=== PATIENT | male | born 1970 | race Two or more races ===

== ENCOUNTER 2021-10-17 10:53 | Outpatient (REF) | payer OTHER, SELFPAY ==
--- NOTE | ~2021-10-17 | US_ITS ---
EXAMINATION: US RETROPERITONEAL LIMITED (RENAL ONLY) CLINICAL INFORMATION: Calculus of kidney. COMPARISON: None TECHNIQUE: Real-time imaging of the kidneys. FINDINGS: RIGHT KIDNEY: 11.0 x 6.0 x 5.7 cm (SAG x AP x TRV). The kidney is normal in size, contour, and echogenicity. Renal cortical thickness is normal. No calculi or focal parenchymal lesions. No hydronephrosis. LEFT KIDNEY: 11.1 x 7.0 x 4.8 cm (SAG x AP x TRV). The kidney is normal in size, contour, and echogenicity. Renal cortical thickness is normal. There is a 5 mm stone in the lower pole. No focal parenchymal lesions or hydronephrosis. US/US renal BI IMPRESSION: Left renal stone.
== END 2021-10-17 10:54 | disposition home or self-care (01) ==
LOC: HO.US 10:53
PROVIDERS: Visit Provider Internal Medicine
DX: N20.0 Calculus of kidney (principal)
CPT/HCPCS: 76775

== ENCOUNTER → 2021-11-07 08:51 | Outpatient (BNVA) | payer OTHER, SELFPAY | PROVIDERS: PCP Internal Medicine | DX: N20.0 Calculus of kidney (principal) | CPT/HCPCS: 99202 ==

== ENCOUNTER → 2021-12-01 12:33 | Outpatient (BNVA) | payer OTHER, SELFPAY | PROVIDERS: PCP Internal Medicine; Visit Provider Nurse Practitioner | DX: Z12.11 Encounter for screening for malignant neoplasm of colon (principal) | CPT/HCPCS: 99202 ==

== ENCOUNTER 2022-01-16 14:29 | Outpatient (REF) | payer OTHER, SELFPAY ==
[2022-01-20 23:31] LABS: Stone Source KIDNEY STONE
== END 2022-01-16 14:30 | disposition home or self-care (01) ==
LOC: HO.LAB 14:29
DX: N20.0 Calculus of kidney (principal)
CPT/HCPCS: 82365; 88300; 88307

== ENCOUNTER 2022-01-19 09:13 | Outpatient (REF) | payer OTHER, SELFPAY ==
[2022-01-19 09:30] LABS: MANUAL DIFF FLAG NO
[2022-01-19 09:38] LABS: Basophils Percent Auto 0.3 % (0-2); Eosinophils Absolute Auto 0.1 X10*3/uL (0.0-0.4); Eosinophils Percent Auto 1.7 % (0-4); Hematocrit 41.3 % (42.0-52.0); Hemoglobin 14.1 g/dl (14.0-18.0); Imm Gran Abs Auto 0.02 X10*3/uL (0.00-0.03); Imm Gran Pct Auto 0.3 % (0.0-0.4); Lymphocytes Absolute Auto 1.8 X10*3/uL (1.2-4.9); Lymphocytes Percent Auto 26.4 % (20-40); Mean Corpuscular HGB Conc 34.1 g/dl (31.0-36.0); Mean Corpuscular Hemoglobin 29.3 pg (27.0-33.0); Mean Corpuscular Volume 85.9 fL (80.0-98.0); Mean Platelet Volume 9.2 fL (9.4-12.4); Monocytes Absolute Auto 0.6 X10*3/uL (0.1-1.2); Monocytes Percent Auto 9.7 % (2-11); Neutrophils Absolute Auto 4.1 x10*3/uL (2.0-8.3); Neutrophils Percent Auto 61.6 % (45-73); Platelet Count 230 X10*3/uL (160-400); Red Blood Count 4.81 X10*6/uL (4.60-5.80); Red Cell Distribution Width 12.7 % (11.0-16.0); White Blood Count 6.6 X10*3/uL (4.8-10.8)
[2022-01-19 10:13] LABS: Alanine Aminotransferase 23 U/L (0-40); Albumin Level 4.1 g/dL (3.5-5.0); Alkaline Phosphatase 73 U/L (39-117); Anion Gap 11 (12-20); Aspartate Amino Transferase 16 U/L (5-37); Bilirubin Total 0.7 mg/dL (0.0-1.0); Blood Urea Nitrogen 13 mg/dL (9-16); Calcium 9.8 mg/dL (8.4-10.2); Carbon Dioxide 27 mmol/L (22-29); Chloride 106 mmol/L (96-108); Estimated Glomerular Filt Rate > 60; Glucose Random 114 mg/dL (60-115); Potassium 4.2 mmol/L (3.3-5.1); Sodium 140 mmol/L (135-145); Total Protein 7.2 g/dL (6.5-8.0)
== END 2022-01-19 09:14 | disposition home or self-care (01) ==
LOC: HO.LAB 09:13
PROVIDERS: Absent Provider Internal Medicine; PCP Internal Medicine; Visit Provider Nurse Practitioner
DX: K21.9 Gastro-esophageal reflux disease without esophagitis (principal)
CPT/HCPCS: 36415; 80053; 85025

== ENCOUNTER 2022-04-16 08:58 | Outpatient (REF) | payer OTHER, SELFPAY ==
--- NOTE | ~2022-04-16 | US_ITS ---
EXAMINATION: US RETROPERITONEAL LIMITED (RENAL ONLY) CLINICAL INFORMATION: Calculus of kidney. COMPARISON: US retroperitoneal limited (renal only) 10/17/2021. TECHNIQUE: Real-time imaging of the kidneys. FINDINGS: RIGHT KIDNEY: 10.6 x 5.4 x 5.8 cm (SAG x AP x TRV). The kidney is normal in size, contour, and echogenicity. Renal cortical thickness is normal. No calculi or focal parenchymal lesions. No hydronephrosis. LEFT KIDNEY: 11.9 x 5.6 x 4.3 cm (SAG x AP x TRV). The kidney is normal in size, contour, and echogenicity. Renal cortical thickness is normal. There is a 5 mm stone in the lower pole. No focal parenchymal lesions or hydronephrosis. US/US renal BI IMPRESSION: Left renal stone.
== END 2022-04-16 08:59 | disposition home or self-care (01) ==
LOC: HO.US 08:58
DX: N20.0 Calculus of kidney (principal)
CPT/HCPCS: 76775

== ENCOUNTER 2022-07-17 07:29 | Day surgery (SDC) | payer OTHER, SELFPAY ==
[2022-07-11 09:29] VITALS: BMI 29.2
--- NOTE | 2022-07-16 11:49 | HO.ANESPROP2 ---
Documented by User: Sheri Ovalle NP 07/16/22 11:52 HPI - Anesthesia Eval Consult details Narrative: 52yo M for Colonoscopy PMFSH Active Problems Active Problems: All Active Problems (Updated 01/22/22 @ 10:33 by Lauren Chapa MD) Physical exam (Acute) Colon cancer screening (Acute) Umbilical hernia (Acute) Ventral hernia (Acute) History of pancreatitis (Acute) History of alcohol abuse (Acute) Renal calculi (Acute) Screen for colon cancer (Acute) Family history of hypertension (Acute) Hemorrhoids (Acute) Nephrolithiasis (Acute) Chronic GERD (Acute) KINDRA (generalized anxiety disorder) (Acute) Mild recurrent major depression (Acute) Past Medical History Medical History Chronic GERD Family history of hypertension KINDRA (generalized anxiety disorder) Hemorrhoids History of pancreatitis Mild recurrent major depression Nephrolithiasis Physical exam Renal calculi Screen for colon cancer Family History Family History Father No problems noted. Mother Hypertension Surgical History Surgical History No pertinent past surgical history Social History Social History Housing: Apartment Alcohol intake: former Patient Tobacco Use Status: Former Tobacco user Tobacco use type: Cigarette e-Cigarette/Vaping Use: Never Used Second Hand Smoke Exposure: No Are you DNR?: No Advance Directives: No Advance Directives Information Provided: Yes Nutrition Risks: No Nutritional Risk service: No Current occupational status: employed Current occupational exposures/hazards: No Cognitive needs: No Hearing needs: No Vision needs: No Meds Allergies Allergy/AdvReac Type Severity Reaction Status Date / Time No Known Allergies Allergy Verified 07/17/22 08:11 Exam Exam Date and Time: July 16, 2022 1149 Height,Weight and Vital Signs: Height 5 ft 6 in Weight 82.1 kg Pertinent Lab Results Pertinent Lab Results: Laboratory Tests 01/19/22 01/19/22 09:30 09:30 WBC 6.6 Hgb 14.1 Hct 41.3 L Plt Count 230 Sodium 140 Potassium 4.2 Chloride 106 Carbon Dioxide 27 BUN 13 Creatinine 0.99 Assessment and Plan Assessment Anesthesia Assessment: Chart Reviewed Documented by User: Evelia Bryan MD 07/17/22 08:34 PMFSH Past Medical History Medical History Chronic GERD Family history of hypertension KINDRA (generalized anxiety disorder) Hemorrhoids History of pancreatitis Mild recurrent major depression Nephrolithiasis Physical exam Renal calculi Screen for colon cancer Family History Family History Father No problems noted. Mother Hypertension Surgical History Surgical History No pertinent past surgical history History of Problems with Anesthesia: No Social History Social History Housing: Apartment Alcohol intake: former Patient Tobacco Use Status: Former Tobacco user Tobacco use type: Cigarette e-Cigarette/Vaping Use: Never Used Second Hand Smoke Exposure: No Are you DNR?: No Advance Directives: No Advance Directives Information Provided: Yes Nutrition Risks: No Nutritional Risk service: No Current occupational status: employed Current occupational exposures/hazards: No Cognitive needs: No Hearing needs: No Vision needs: No Meds Allergies Allergy/AdvReac Type Severity Reaction Status Date / Time No Known Allergies Allergy Verified 07/17/22 08:11 Assessment and Plan Assessment Anesthesia Assessment: Anesthesia Plan Discussed Final Anesthetic Review History of Problems with Anesthesia: No NPO: Yes ASA Class: II Final Preanesthetic Review: Meds/Allgs Chart Reviewed, Consent Obtained/Reviewed and Anes Risks/Benef Reviewed Patient Risk: Low Procedure Risk: Low Anesthetic Plan Anesthetic Plan: MAC: Disposition: Standard PACU
[2022-07-17 08:09] VITALS: BP 146/88; PULSE 94; RESP 18; TEMP 36.7; O2SAT 100
[2022-07-17] MEDS: Lactated Ringers 1,000 ML 100 ML IVCONT (08:15)
--- NOTE | 2022-07-17 08:37 | MHC.SHP ---
Pre-Procedural Eval Section A Date of Service: 07/17/22 Section B Chief Complaint: screening Relevant Family History (Specify if Yes): No Relevant Social History: None Present Medications: see Short Stay Collaborative assessment Medical History: Significant History (Chronic GERD Family history of hypertension KINDRA (generalized anxiety disorder) Hemorrhoids History of pancreatitis Mild recurrent major depression Nephrolithiasis Physical exam Renal calculi Screen for colon cancer) History of Previous Operations: No relevant previous surgery Allergies: Allergies Allergy/AdvReac Type Severity Reaction Status Date / Time No Known Allergies Allergy Verified 07/17/22 08:11 Review of Systems Sugical H&P ROS: Negative: Constitution, Cardiovascular, Respiratory, Neurological, Psychiatric, Hem-Onc, Allergic/Immunologic, Gastrointestinal, Genitourinary, Musculoskeletal, Integumentary, Endocrine and Eyes/Ears/Nose/Throat Exam Surgical H&P Exam: Normal: HEENT, Normal: Heart, Normal: Lungs, Normal: Extremities, Normal: Abdomen, Normal: Skin and Normal: Neurological Plan Diagnosis/Plan: Unchanged I have reviewed the history and physical and performed a pertinent physical examination on my patient. No changes have occurred unless specified.
--- NOTE | 2022-07-17 08:42 | PC.NURSE ---
Anti aware that patient stated that he ate green jello and drank apple juice at 0300. Okay to proceed.
--- NOTE | 2022-07-17 09:21 | W.PM.OPN ---
Operative Note Operative Note Date of Service: 07/17/22 Narrative: Operative Information Procedure Description: Colonoscopy Indication: screening Anesthesia: MAC COLONOSCOPY Instrument: Olympus variable stiffness pediatric scope 190L Colonoscopy Monitoring: Vital signs and clinical assessment, continuous EKG monitoring, Pulse oximetry, Carbon Dioxide monitoring and blood pressure monitoring were done throughout the procedure. Colon withdrawal time was 6 minutes. Procedure: The patient was placed in the left lateral decubitis position and pre-procedure medications were administered. After a digital rectal examination of the ano-rectum, the video colonoscope was inserted into the rectum and advanced through the colon to the cecum/TI. The colonoscope was slowly withdrawn in a retrograde panoramic fashion and the colon mucosa was carefully examined including a retroflexed view of the rectum. Findings and interventions are described below. Procedure Difficulty: easy Findings: Terminal Ileum-normal Cecum:normal Ascending Colon: normal Transverse Colon -normal Descending Colon:normal Sigmoid Colon: normal Rectum: Retroflexion with small internal hemorrhoids, grade I Anorectum - normal Colon preparation: [place] Bowel Preparation Scale Right colon; 3 Transverse colon: 3 Left colon; 3 (0 = Unprepared colon segment with mucosa not seen due to solid stool that cannot be cleared. 1 = Portion of mucosa of the colon segment seen, but other areas of the colon segment not well seen due to staining, residual stool and/or opaque liquid. 2 = Minor amount of residual staining, small fragments of stool and/or opaque liquid, but mucosa of colon segment seen well. 3 = Entire mucosa of colon segment seen well with no residual staining, small fragments of stool or opaque liquid) Impression and Post Procedure Diagnosis: internal hemorrhoids Plan: High fiber diet leaflet Avoid straining at stool, epsom salts and sitz bath, anusol supps or cream Repeat Colonoscopy in 10 years or earlier if clinically indicated Above findings were reviewed with the patient and relevant handouts were provided if indicated.
[2022-07-17 09:24] VITALS: BP 111/61; PULSE 86; RESP 16; TEMP 36.7; O2SAT 94
[2022-07-17 09:39] VITALS: BP 111/89; PULSE 81; RESP 16; TEMP 37; O2SAT 97
== END 2022-07-17 10:03 | disposition home or self-care (01) ==
PROVIDERS: PCP Internal Medicine; Visit Provider Internal Medicine Gastroenterology
PROC: 0DJD8ZZ Inspection of Lower Intestinal Tract, Via Natural or Artificial Opening Endoscopic (ICD-10-PCS; CPT 45378; principal; 2022-07-17 08:50)
DX: Z12.11 Encounter for screening for malignant neoplasm of colon (principal); K64.0 First degree hemorrhoids; K21.9 Gastro-esophageal reflux disease without esophagitis; Z87.19 Personal history of other diseases of the digestive system; N20.0 Calculus of kidney; F33.0 Major depressive disorder, recurrent, mild; F41.1 Generalized anxiety disorder; Z87.891 Personal history of nicotine dependence; Z79.899 Other long term (current) drug therapy
CPT/HCPCS: 45378

== ENCOUNTER → 2022-07-31 09:44 | Outpatient (BNVA) | payer OTHER, SELFPAY | PROVIDERS: PCP Internal Medicine; Visit Provider Nurse Practitioner | DX: K21.9 Gastro-esophageal reflux disease without esophagitis (principal) | CPT/HCPCS: 99212 ==

== ENCOUNTER 2023-05-23 09:49 | Outpatient (REF) | payer OTHER, SELFPAY ==
--- NOTE | ~2023-05-23 | US_ITS ---
EXAMINATION: US RETROPERITONEAL LIMITED (RENAL ONLY) CLINICAL INFORMATION: Calculus of kidney. COMPARISON: Ultrasound retroperitoneal limited (renal only) 04/16/2022 and 10/17/2021. TECHNIQUE: Real-time imaging of the kidneys. FINDINGS: RIGHT KIDNEY: 10.3 x 6.4 x 5.7 cm (SAG x AP x TRV). The kidney is normal in size, contour, and echogenicity. Renal cortical thickness is normal. No calculi or focal parenchymal lesions. No hydronephrosis. There are numerous echogenic foci which do not meet formal ultrasound criteria for calculi. LEFT KIDNEY: 10.5 x 6.3 x 5.9 cm (SAG x AP x TRV). The kidney is normal in size, contour, and echogenicity. Renal cortical thickness is normal. No focal parenchymal lesions or hydronephrosis. At the lower pole, 6 mm and 3 mm nonobstructing calculi are seen, with twinkle artifact. US/US renal BI IMPRESSION: There are nonobstructing left renal calculi. No right renal calculus is seen. No hydronephrosis is noted bilaterally.
== END 2023-05-23 09:50 | disposition home or self-care (01) ==
LOC: HO.US 09:49
PROVIDERS: PCP Internal Medicine; Visit Provider Urology
DX: N20.0 Calculus of kidney (principal)
CPT/HCPCS: 76775

== ENCOUNTER 2023-06-20 10:20 | Outpatient (AMB) | payer OTHER, SELFPAY ==
--- NOTE | 2023-06-20 10:21 | A.OFFVIS_ITS ---
Intake Intake Visit Reasons: 1Y US(05/03) Intake Note: Patient presents today for a follow-up on Renal Calculi, US Results, completed on 05/23/2023: Meds- None Allergies to Antibiotic- No Known Allergies Blood Thinner- None Vehicle Maintenance Supervisor Required: Yes Vehicle Maintenance Supervisor Language: Peruvian Accompanied by: Self / Same As Patient Allergies No Known Allergies Allergy (Verified 06/20/23 10:22) HPI 1Y US(05/03) HPI Katia العراقي is a 53-year-old male who presents today via tele-visit for a follow-up review of US result. 06/20/23? The patient has been followed by Dr. Jin for nephrolithiasis. The patient denies any urinary symptoms since last visit. He has not been prescribed Vit B6. He denies any family history of prostate cancer. 05/23/23: US RETROPERITONEAL LIMITED (RE NAL ONLY) result reviewed: There are 3mm and 6 mm non-obstructing left renal calculi. No right renal calculus is seen. No hydronephrosis is noted bilaterally. Plan We will continue to monitor at this time. Vitamin B6 100 mg was ordered. 24-hour urine collection test was ordere d. The patient will follow up in three months to review 24-hour urine collection test result. [facility] Medical History Physical exam Renal calculi Screen for colon cancer Family history of hypertension History of pancreatitis Hemorrhoids Nephrolithiasis Chronic GERD KINDRA (generalized anxiety disorder) Mild recurrent major depression Surgical History H/O colonoscopy Family History Father No problems noted. Mother Hypertension Social History Housing: Apartment Alcohol intake: former Patient Tobacco Use Status: Former Tobacco user Tobacco use type: Cigarette e-Cigarette/Vaping Use: Never Used Second Hand Smoke Exposure: No service: No Current occupational status: employed Current occupational exposures/hazards: No Cognitive needs: No Hearing needs: No Vision needs: No Review of Systems Const All systems reviewed & are unremarkable except as noted in HPI and below Reports no additional complaints Eyes Reports no additional complaints ENT Reports no additional complaints Card Reports no additional complaints Resp Reports no additional complaints GI Reports no additional complaints Musc Reports no additional complaints Skin/Breast Reports system reviewed and no additional complaints, except as documented Neuro Reports no additional complaints Psych Reports no additional complaints Endo Reports no additional complaints Angel/Lymph Reports no additional complaints Aller/Immun Reports no additional complaints Results Reviewed Results Reviewed: 05/23/23: US RETROPERITONEAL LIMITED (RENAL ONLY): FINDINGS: RIGHT KIDNEY: 10.3 x 6.4 x 5.7 cm (SAG x AP x TRV). The kidney is normal in size, contour, and echogenicity. Renal cortical thickness is normal. No calculi or focal parenchymal lesions. No hydronephrosis. There are numerous echogenic foci which do not meet formal ultrasound criteria for calculi. LEFT KIDNEY: 10.5 x 6.3 x 5.9 cm (SAG x AP x TRV). The kidney is normal in size, contour, and echogenicity. Renal cortical thickness is normal. No focal parenchymal lesions or hydronephrosis. At the lower pole, 6 mm and 3 mm nonobstructing calculi are seen, with twinkle artifact. IMPRESSION: There are nonobstructing left renal calculi. No right renal calculus is seen. No hydronephrosis is noted bilaterally. Assessment & Plan Assessment & Plan (1) Renal calculi: Code(s): N20.0 - Calculus of kidney Plan We will continue to monitor at this time. Vitamin B6 100 mg was ordered. 24-hour urine collection test was ordered. The patient will follow up in three months to review 24-hour urine collection test result. Medications: New pyridoxine (vitamin B6) 100 mg PO DAILY 90 tabs 3RF Patient Instructions: The patient had an opportunity to ask questions regarding treatment plan. All questions were answered. Imaging, Laboratory studies and physical exam results were discussed and reviewed in detail. No major barriers to understanding were identified. The patient expressed understanding and agreement with the above treatment plan. The patient is aware they should contact our office by phone for worsening of their current condition or the appearance of new symptoms. Compliance is encouraged with any medications and followup testing that is ordered. It is a privilege to be allowed the opportunity to participate in the urologic care of your patient. If you have any questions or concerns regarding treatment for the above conditions please do not hesitate to contact me. The office telephone contact is [phone]. This note is constructed in part using voice recognition software. While every effort has been made to ensure accuracy car pick up driver errors may have been included. Yours sincerely, Karen Carpio MD Telehealth Telehealth Location of provider rendering services: practice address Location of patient: address on file Patient Identification confirmed using: Name, : Yes Telehealth method: voice only Patient verbally consented to treatment: Yes Patient verbally consented to billing insurance company: Yes Patient informed of any privacy concerns related to visit: Yes Minutes spent on Phone/Video with Pt.: 15 Coding Level of Care Code Tele Est Pt Level 3 (37493) Diagnoses Renal calculi N20.0
== END 2023-06-20 16:30 ==
LOC: HO.HUSH 10:20
PROVIDERS: PCP Internal Medicine; Visit Provider Urology
DX: N20.0 Calculus of kidney (principal)
CPT/HCPCS: 99213

== ENCOUNTER → 2023-06-20 10:20 | Outpatient (BNVA) | payer OTHER, SELFPAY | PROVIDERS: PCP Internal Medicine; Visit Provider Urology ==

== ENCOUNTER 2023-07-10 13:01 | Outpatient (REF) | payer OTHER, SELFPAY ==
[2023-07-10 14:50] LABS: Influenza A PCR NEGATIVE (Negative); Influenza B PCR NEGATIVE (Negative); Resp Syncy Virus RNA Qual PCR NEGATIVE (Negative); SARS COV2 PCR INHOUSE NEGATIVE (Negative)
== END 2023-07-10 13:02 | disposition home or self-care (01) ==
LOC: HO.LAB 13:01
PROVIDERS: PCP Internal Medicine; Visit Provider Internal Medicine
DX: R09.89 Other specified symptoms and signs involving the circulatory and respiratory systems (principal); Z11.52 Encounter for screening for COVID-19
CPT/HCPCS: 0241U

== ENCOUNTER 2023-07-10 16:46 | Outpatient (AMB) | payer OTHER, SELFPAY ==
[2023-07-10 16:49] VITALS: BP 146/110; PULSE 130; O2SAT 96; BMI 29.9
--- NOTE | 2023-07-10 16:49 | A.OFFPC_ITS ---
Vital Signs 07/10/23 16:49 07/11/23 07:35 Height 5 ft 6 in Weight 185 lb BMI 29.9 BP 146/110 H 140/100 H Blood Pressure Location Lt brachial Lt brachial Position Sitting Sitting Pulse 130 H Pulse Source Pulse Oximeter Pulse Oximetry (%) 96 Oxygen Delivery Method Room Air Intake Visit Reasons: Annual PE Intake Note: Patient here for a physical exam Chief Science Officer Required: No Accompanied by: Self / Same As Patient Allergies No Known Allergies Allergy (Verified 07/10/23 17:10) Medication List - Last Reconciled 07/10/23 by Lauren Chapa MD omeprazole 20 mg PO DAILY 90 days pyridoxine (vitamin B6) 100 mg PO DAILY Tobacco use date assessed: 07/10/23 Dental Screening Dental Screen Date: 07/10/23 Did you have a dental visit in the last 12 months?: No Did you have a dental problem in the last 6 months where you did not have access to dental care?: No Was dental information given to patient?: Patient has dentist HPI HPI Comments History of Present Illness Details This is a 53-year-old male that comes for his physical exam. Blood pressure is elevated today and will be recheck in 3 weeks by nurse navigator. Denies any chest pain or shortness of breath. Colonoscopy done July 2022 was normal. [facility] Medical History Physical exam Renal calculi Screen for colon cancer Family history of hypertension History of pancreatitis Hemorrhoids Nephrolithiasis Chronic GERD KINDRA (generalized anxiety disorder) Mild recurrent major depression Surgical History H/O colonoscopy Family History Father No problems noted. Mother Hypertension Social History Housing: Apartment Alcohol intake: former Patient Tobacco Use Status: Former Tobacco user Tobacco use type: Cigarette e-Cigarette/Vaping Use: Never Used Second Hand Smoke Exposure: No service: No Current occupational status: employed Current occupational exposures/hazards: No Cognitive needs: No Hearing needs: No Vision needs: No Questionnaire PHQ-9 Over the last 2 weeks, how often have you been bothered by any of the following problems? 1. Little interest or pleasure in doing things: not at all 2. Feeling down, depressed, or hopeless: not at all 3. Trouble falling or staying asleep, or sleeping too much: not at all 4. Feeling tired or having little energy: not at all 5. Poor appetite or overeating: not at all 6. Feeling bad about yourself - or that you are a failure or have let yourself or your family down: not at all 7. Trouble concentrating on things, such as reading the newspaper or watching television: not at all 8. Moving or speaking so slowly that other people could have noticed. Or the opposite - being so fidgety or restless that you have been moving around a lot more than usual: not at all 9. Thoughts that you would be better off or of hurting yourself in some way: not at all Total score: 0 Depression Screening Interpretation: Negative Depression Screening Done: Yes 26523 - PHQ-9 Billing: Yes Source: Developed by Drs. Vel Gill, Allison Moran, Jonatan Omalley and colleagues, with an educational laure from [employer]. Thrive Questionnaire Date Thrive assessed: 07/10/23 I am a: Patient What is your living situation today?: I have a steady place to live Within the past 12 months, did the food you bought not last and you didn't have the money to get more?: Never true Within the past 12 months, did you worry whether your food would run out before you got money to buy more?: Never true Do you have trouble paying for medicines?: No Do you have trouble getting transportation to medical appointments?: No Do you have trouble paying your heating and electricity bill?: No Do you have trouble taking care of your child, family member or friend?: No Do you have trouble with day-to-day activities such as bathing, preparing meals, shopping, managing finances, etc.?: No Are you currently unemployed and looking for a job?: No Are you interested in more education?: No Please select the resources that you would like help with: None Currently or been in a relationship where the following occur: no concerns rep orted AUDIT C Alcohol Use Questionnaire (AUDIT-C) 1. How often do you have a drink containing alcohol?: Never Total Score: 0 KINDRA-7 AMB Questionnaire KINDRA-7 Date KINDRA - 7 assessed: 07/10/23 Feeling nervous, anxious, or on edge: 1 = Several days Not being able to stop or control worryin = Not at all Worrying too much about different things: 0 = Not at all Trouble relaxin = Not at all Being so restless that it is hard to sit still: 0 = Not at all Becoming easily annoyed or irritable: 0 = Not at all Feeling afraid as if something awful might happen: 0 = Not at all Total KINDRA-7 score (0-4 normal; 5-9 mild; 10-14 moderate; 15-21 severe): 1 Source: Developed by Drs. Vel Gill, Allison Moran, Jonatan Omalley and colleagues, with an educational laure from [employer]. KINDRA-7 Assessment Billing KINDRA-7 Assessment Tool: KINDRA-7 Assessment 08840 Review of Systems Const All systems reviewed & are unremarkable except as noted in HPI and below Eyes Reports no additional complaints, Denies change in vision and Denies other visual disturbances Card Denies chest pain at rest, Denies chest pain with activity, Denies edema, Denies irregular heart rhythm, Denies claudication, Denies dyspnea, Denies dyspnea on exertion, Denies orthopnea, Denies paroxysmal nocturnal dyspnea and Denies slow heart rate Resp Denies cough, Denies dyspnea and Denies dyspnea on exertion GI Denies abdominal pain, Denies change in bowel habits, Denies excessive flatus, Denies nausea and Denies vomiting Denies urinary hesitancy, Denies urinary incontinence and Denies urinary urgency Musc Denies abnormal gait, Denies atrophy, Denies deformity and Denies limited range of motion Skin/Breast Denies bleeding lesions, Denies changing lesions and Denies rash Neuro Denies abnormal gait and Denies lack of coordination Physical exam (Primary Care) Vital Signs: Last Vital Signs Pulse 130 H 07/10/23 16:49 BP 146/110 H 07/10/23 16:49 Pulse Ox 96 07/10/23 16:49 Oxygen Delivery Method Room Air 07/10/23 16:49 BMI result Body Mass Index 29.9 Tobacco/Smoking Status: Tobacco use Status Tobacco use date assessed 07/10/23 07/10/23 16:53 Patient Tobacco Use Status Former Tobacco user 07/10/23 16:53 Tobacco use type Cigarette 07/10/23 16:53 e-Cigarette/Vaping Use Never Used 07/10/23 16:53 PHQ-9: PHQ-9 Score PHQ-9: Total score 0 07/10/23 17:15 Depression Screening Interpretation: Negative Thrive Assessment: Date of Thrive Assessment Date Thrive assessed 07/10/23 07/10/23 16:53 Currently or been in a relationship where the following occur: no concerns reported Const Orientation/consciousness: patient oriented x3 HENMT Head: Yes normal to inspection, Yes normocephalic and Yes atraumatic Ears: external ears normal Eyes General: appearance normal, both eyes and all related structures Eyelids: Yes eyelids normal Conjunctivae: conjunctivae normal Neck Neck: Yes normal visual inspection and Yes supple Resp Effort & Inspection: normal respiratory effort Auscultation: clear to auscultation bilaterally Cardio Jugular venous distension: no JVD Rate: regular rate Rhythm: regular rhythm Heart sounds: S1 normal heart sound present and S2 normal heart sound present GI Inspection: Yes normal to inspection Palpation (GI): Soft to palpation and nontender Auscultation: normal bowel sounds Skin General skin exam: no rashes or lesions noted Neuro General: patient oriented x3 and no focal motor deficits Extrem General: Yes full ROM Psych Appearance: grossly normal Office Procedures Flu Questionnaire Does the patient have a severe egg allergy?: No Immunizations flu vacc [id number] 6mos up(PF) 60 mcg(15 mcgx4)/0.5 mL IM syringe Performing Provider: Lauren Chapa MD [facility] [place] Documented (not given) by: TIMI Edouard on 07/10/23 17:10 Reason Not Given: Patient Refused Assessment and Plan Assessment & Plan (1) Physical exam: Code(s): Z00.00 - Encounter for general adult medical examination without abnormal findings Plan: Repeat in a year Orders: Orders SARS-CoV2/FLU/RSV 07/10/23 R09.89 - Other specified symptoms and signs involving the circulatory and respiratory systems Influenza [id number] Immunization 07/10/23 Z23 - Encounter for immunization Comprehensive Welcome. Panel Fast 07/10/23 Z00.00 - Encounter for general adult medical examination without abnormal findings Lipid Panel 07/10/23 Z00.00 - Encounter for general adult medical examination without abnormal findings Medications: New amoxicillin 500 mg PO BID 14 tabs 0RF 7 days Coding Level of Care Code Est Pt Prev Care 40-64y(36013) Diagnoses Physical exam Z00.00 Additional Codes KINDRA-7 Assessment Billing - KINDRA-7 Assessment Tool: KINDRA-7 Assessment 37022 ([id number]) Time Spent (min) 31
[2023-07-11 07:35] VITALS: BP 140/100
== END 2023-07-10 17:19 | disposition home or self-care (01) ==
PROVIDERS: Visit Provider Internal Medicine
DX: Z00.00 Encounter for general adult medical examination without abnormal findings (principal)
CPT/HCPCS: 99396

== ENCOUNTER 2024-01-09 14:48 | Outpatient (AMB) | payer OTHER, SELFPAY ==
[2024-01-09 14:58] VITALS: BP 130/76; BMI 28.9
--- NOTE | 2024-01-09 14:58 | MHC.PC.OV ---
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 Required: No Accompanied by: Self / Same As Patient Allergies No Known Allergies Allergy (Verified 01/09/24 15:35) Medication List - Last Reconciled 01/09/24 by Lauren Chapa MD omeprazole 20 mg PO DAILY 90 days pyridoxine (vitamin B6) 100 mg PO DAILY Tobacco use date assessed: 01/09/24 Dental Screening Dental Screen Date: 01/09/24 Did you have a dental visit in the last 12 months?: No Did you have a dental problem in the last 6 months where you did not have access to dental care?: No Was dental information given to patient?: Patient has dentist HPI HPI Comments History of Present Illness Details This is a 53-year-old male with mild recurrent major depression in remission, generalized anxiety disorder, GERD and nephrolithiasis that comes today for follow-up on his conditions. Depression has been in remission with no need for medication or counseling. Anxiety has been well controlled with relaxation techniques. GERD stable with PPIs. On vitamin B6 for nephrolithiasis prophylaxis. Denies any chest pain or shortness of breath. No fever or cough. Doing well. [facility] Medical History Physical exam Renal calculi Screen for colon cancer Family history of hypertension History of pancreatitis Hemorrhoids Nephrolithiasis Chronic GERD KINDRA (generalized anxiety disorder) Mild recurrent major depression Surgical History H/O colonoscopy Family History Father No problems noted. Mother Hypertension Social History Housing: Apartment Alcohol intake: former Patient Tobacco Use Status: Former Tobacco user Tobacco use type: Cigarette e-Cigarette/Vaping Use: Never Used Second Hand Smoke Exposure: No service: No Current occupational status: unemployed Cognitive needs: No Hearing needs: No Vision needs: No Questionnaire PHQ-9 Over the last 2 weeks, how often have you been bothered by any of the following problems? 1. Little interest or pleasure in doing things: not at all 2. Feeling down, depressed, or hopeless: not at all 3. Trouble falling or staying asleep, or sleeping too much: not at all 4. Feeling tired or having little energy: not at all 5. Poor appetite or overeating: not at all 6. Feeling bad about yourself - or that you are a failure or have let yourself or your family down: not at all 7. Trouble concentrating on things, such as reading the newspaper or watching television: not at all 8. Moving or speaking so slowly that other people could have noticed. Or the opposite - being so fidgety or restless that you have been moving around a lot more than usual: not at all 9. Thoughts that you would be better off or of hurting yourself in some way: not at all Total score: 0 Depression Screening Interpretation: Negative Depression Screening Done: Yes 93694 - PHQ-9 Billing: Yes Source: Developed by Drs. Vel Gill, Allison Moran, Jonatan Omalley and colleagues, with an educational laure from [employer]. Thrive Questionnaire Date Thrive assessed: 01/09/24 I am a: Patient What is your living situation today?: I have a steady place to live Within the past 12 months, did the food you bought not last and you didn't have the money to get more?: Never true Within the past 12 months, did you worry whether your food would run out before you got money to buy more?: Never true Do you have trouble paying for medicines?: No Do you have trouble getting transportation to medical appointments?: No Do you have trouble paying your heating and electricity bill?: No Do you have trouble taking care of your child, family member or friend?: No Do you have trouble with day-to-day activities such as bathing, preparing meals, shopping, managing finances, etc.?: No Are you currently unemployed and looking for a job?: No Are you interested in more education?: No Please select the resources that you would like help with: None Currently or been in a relationship where the following occur: no concerns reported THRIVE Score: 0 AUDIT C Alcohol Use Questionnaire (AUDIT-C) 1. How often do you have a drink containing alcohol?: Never Total Score: 0 Score Reviewed/Action Taken: No KINDRA-7 AMB Questionnaire KINDRA-7 Date KINDRA - 7 assessed: 01/09/24 Feeling nervous, anxious, or on edge: 3 = Nearly every day Not being able to stop or control worryin = Not at all Worrying too much about different things: 1 = Several days Trouble relaxin = Not at all Being so restless that it is hard to sit still: 0 = Not at all Becoming easily annoyed or irritable: 1 = Several days Feeling afraid as if something awful might happen: 0 = Not at all Total KINDRA-7 score (0-4 normal; 5-9 mild; 10-14 moderate; 15-21 severe): 5 Source: Developed by Drs. Vel Gill, Allison Moran, Jonatan Omalley and colleagues, with an educational laure from [employer]. KINDRA-7 Assessment Billing KINDRA-7 Assessment Tool: KINDRA-7 Assessment 02242 Review of Systems Const All systems reviewed & are unremarkable except as noted in HPI and below Card Denies chest pain at rest, Denies chest pain with activity, Denies edema, Denies irregular heart rhythm, Denies claudication, Denies dyspnea, Denies dyspnea on exertion, Denies orthopnea, Denies paroxysmal nocturnal dyspnea and Denies slow heart rate Resp Denies cough, Denies dyspnea and Denies dyspnea on exertion GI Denies abdominal pain, Denies change in bowel habits, Denies excessive flatus, Denies nausea and Denies vomiting Denies urinary hesitancy, Denies urinary incontinence and Denies urinary urgency Physical exam (Primary Care) Vital Signs: Last Vital Signs BP 130/76 01/09/24 14:58 BMI result Body Mass Index 28.9 Tobacco/Smoking Status: Tobacco use Status Tobacco use date assessed 01/09/24 01/09/24 15:06 Patient Tobacco Use Status Former Tobacco user 01/09/24 15:06 Tobacco use type Cigarette 01/09/24 15:06 e-Cigarette/Vaping Use Never Used 01/09/24 15:06 PHQ-9: PHQ-9 Score PHQ-9: Total score 0 01/09/24 15:39 Depression Screening Interpretation: Negative Thrive Assessment: Date of Thrive Assessment Date Thrive assessed 01/09/24 01/09/24 15:06 Currently or been in a relationship where the following occur: no concerns reported Resp Effort & Inspection: normal respiratory effort Auscultation: clear to auscultation bilaterally Cardio Jugular venous distension: no JVD Rate: regular rate Rhythm: regular rhythm Heart sounds: S1 normal heart sound present and S2 normal heart sound present Psych Appearance: grossly normal Assessment and Plan Assessment & Plan (1) Chronic GERD: Code(s): K21.9 - Gastro-esophageal reflux disease without esophagitis Plan: Continue PPIs. (2) Nephrolithiasis: Code(s): N20.0 - Calculus of kidney Plan: Continue vitamin B6. (3) Mild recurrent major depression: Code(s): F33.0 - Major depressive disorder, recurrent, mild Plan: In remission. Advised to look for counseling when needed. (4) KINDRA (generalized anxiety disorder): Code(s): F41.1 - Generalized anxiety disorder Plan: Continue relaxation techniques. Orders: Orders Lipid Panel 6 Months E78.5 - Hyperlipidemia, unspecified, Z00.00 - Encounter for general adult medical examination without abnormal findings Comprehensive [place]. Panel Fast 6 Months Z00.00 - Encounter for general adult medical examination without abnormal findings Complete Blood Count Auto Diff 6 Months K21.9 - Gastro-esophageal reflux disease without esophagitis Coding Level of Care Code Est Pt Level 4 (37008) Diagnoses Chronic GERD K21.9 Nephrolithiasis N20.0 Mild recurrent major depression F33.0 KINDRA (generalized anxiety disorder) F41.1 Additional Codes KINDRA-7 Assessment Billing - KINDRA-7 Assessment Tool: KINDRA-7 Assessment 87169 ([id number]) Time Spent (min) 20
== END 2024-01-09 15:42 | disposition home or self-care (01) ==
PROVIDERS: PCP Internal Medicine; Visit Provider Internal Medicine
DX: K21.9 Gastro-esophageal reflux disease without esophagitis (principal); N20.0 Calculus of kidney; F33.0 Major depressive disorder, recurrent, mild; F41.1 Generalized anxiety disorder
CPT/HCPCS: 99214

== ENCOUNTER 2024-03-09 12:18 | Outpatient (AMB) | payer OTHER, SELFPAY ==
--- NOTE | 2024-03-09 12:07 | A.OFFVIS_ITS ---
Intake Visit Reasons: [facility] 24 Hour Urine Collection Results Intake Note: Patient is present for [facility] 24 hour urine collection results Urology Medication: Antibiotic Allergy: Blood Thinner: Allergies No Known Allergies Allergy (Verified 01/09/24 15:35) HPI Comments Details: 03/09/24--Here for FU, Reviewed 24 hour urine results: 11/24/23--Total volume 2.88 L, Calcium 206 mg; Oxalate 41 mg, Sodium 270, Citrate 790 mg. Instructed on importance of Low oxalate diet, low sodium diet. Vit B6 100 mg daily. Review of chart: 06/20/23?Malcom is a 53-year-old male who presents today via tele-visit for a follow-up review of US result. The patient has been followed by Dr. Jin for nephrolithiasis. The patient denies any urinary symptoms since last visit. He has not been prescribed Vit B6. He denies any family history of prostate cancer. 05/23/23: US RETROPERITONEAL LIMITED (RENAL ONLY) result reviewed: There are 3mm and 6 mm non-obstructing left renal calculi. No right renal calculus is seen. No hydronephrosis is noted bilaterally. 05/10/22--Malcom is a pleasant male. He is a patient of Dr. Chapa. He seen for the following urologic conditions - nephrolithiasis Recurrence kidney stone former Drinks adequate amounts of water Imaging - 10/31 renal ultrasound left lower pole 5 mm stone - 04/30 renal ultrasound left lower pole 5 mm stone Therapeutic plan - surveillance imaging - encourage 64 oz of water - vitamin B6 [facility] Medical History Physical exam Renal calculi Screen for colon cancer Family history of hypertension History of pancreatitis Hemorrhoids Nephrolithiasis Chronic GERD KINDRA (generalized anxiety disorder) Mild recurrent major depression Surgical History H/O colonoscopy Family History Father No problems noted. Mother Hypertension Social History Housing: Apartment Alcohol intake: former Patient Tobacco Use Status: Former Tobacco user Tobacco use type: Cigarette e-Cigarette/Vaping Use: Never Used Second Hand Smoke Exposure: No service: No Current occupational status: unemployed Cognitive needs: No Hearing needs: No Vision needs: No Results Reviewed Results Reviewed: 05/23/23: US RETROPERITONEAL LIMITED (RENAL ONLY): FINDINGS: RIGHT KIDNEY: 10.3 x 6.4 x 5.7 cm (SAG x AP x TRV). The kidney is normal in size, contour, and echogenicity. Renal cortical thickness is normal. No calculi or focal parenchymal lesions. No hydronephrosis. There are numerous echogenic foci which do not meet formal ultrasound criteria for calculi. LEFT KIDNEY: 10.5 x 6.3 x 5.9 cm (SAG x AP x TRV). The kidney is normal in size, contour, and echogenicity. Renal cortical thickness is normal. No focal parenchymal lesions or hydronephrosis. At the lower pole, 6 mm and 3 mm nonobstructing calculi are seen, with twinkle artifact. IMPRESSION: There are nonobstructing left renal calculi. No right renal calculus is seen. No hydronephrosis is noted bilaterally. Assessment & Plan Assessment & Plan (1) Renal calculi: Code(s): N20.0 - Calculus of kidney Category: Medical Plan Continue to monitor. Patient Instructions: The patient had an opportunity to ask questions regarding treatment plan. The patient expressed understanding and agreement with the above treatment plan. The patient is aware they should contact our office by phone for worsening of their current condition or the appearance of new symptoms. Compliance is encour aged with any medications and followup testing that is ordered. It is a privilege to be allowed the opportunity to participate in the urologic care of your patient. If you have any questions or concerns regarding treatment for the above conditions please do not hesitate to contact me. The office telephone contact is [phone]. This note is constructed in part using voice recognition software. While every effort has been made to ensure accuracy vehicle assembly inspector errors may have been included. Yours sincerely, Karen Carpio MD Coding Level of Care Code Est Pt Level 3 (62655) Diagnoses Renal calculi N20.0
== END 2024-03-09 16:15 | disposition left against medical advice (07) ==
LOC: HO.HUSH 12:18
PROVIDERS: PCP Internal Medicine; Visit Provider Urology
DX: N20.0 Calculus of kidney (principal)
CPT/HCPCS: 99213

== ENCOUNTER → 2024-03-09 12:18 | Outpatient (BNVA) | payer OTHER, SELFPAY | PROVIDERS: PCP Internal Medicine; Visit Provider Urology | DX: Z87.442 Personal history of urinary calculi (principal) | CPT/HCPCS: 99212 ==

== ENCOUNTER → 2024-04-06 13:23 | Outpatient (BNVA) | payer OTHER, SELFPAY | PROVIDERS: PCP Internal Medicine; Visit Provider Urology ==

== ENCOUNTER 2024-06-09 07:40 | Outpatient (REF) | payer OTHER, SELFPAY ==
--- NOTE | ~2024-06-09 | US_ITS ---
EXAMINATION: US RETROPERITONEAL LIMITED (RENAL ONLY) CLINICAL INFORMATION: Calculus of kidney. COMPARISON: Renal ultrasound 05/23/2023 and 04/16/2022. TECHNIQUE: Real-time imaging of the kidneys. FINDINGS: RIGHT KIDNEY: 11.8 x 6.0 x 5.6 cm (SAG x AP x TRV). The kidney is normal in size, contour, and echogenicity. Renal cortical thickness is normal. No calculi or focal parenchymal lesions. No hydronephrosis. LEFT KIDNEY: 11.2 x 5.7 x 6.1 cm (SAG x AP x TRV). The kidney is normal in size, contour, and echogenicity. Renal cortical thickness is normal. No focal parenchymal lesions. There is a lower pole 5 mm echogenic focus with twinkle artifact consistent with a nonobstructing stone. At the time of the prior study, 2 calculi were seen. There is no hydronephrosis. US/US renal BI IMPRESSION: Nonobstructing 5 mm left lower pole renal calculus. Electronically signed by: Daron Hammer MD 07/23/2024 11:51 AM EST
== END 2024-06-09 07:41 | disposition home or self-care (01) ==
LOC: HO.US 07:40
PROVIDERS: PCP Internal Medicine; Visit Provider Urology
DX: N20.0 Calculus of kidney (principal)
CPT/HCPCS: 76775

== ENCOUNTER 2024-07-06 11:05 | Outpatient (REF) | payer OTHER, SELFPAY ==
[2024-07-06 11:31] LABS: MANUAL DIFF FLAG NO
[2024-07-06 11:44] LABS: Basophils Percent Auto 0.3 % (0-2); Eosinophils Absolute Auto 0.1 X10*3/uL (0.0-0.4); Eosinophils Percent Auto 1.7 % (0-4); Hematocrit 44.5 % (42.0-52.0); Hemoglobin 15.5 g/dl (14.0-18.0); Imm Gran Abs Auto 0.01 X10*3/uL (0.00-0.03); Imm Gran Pct Auto 0.2 % (0.0-0.4); Lymphocytes Absolute Auto 2.1 X10*3/uL (1.2-4.9); Mean Corpuscular HGB Conc 34.8 g/dl (31.0-36.0); Mean Corpuscular Hemoglobin 30.1 pg (27.0-33.0); Mean Corpuscular Volume 86.4 fL (80.0-98.0); Monocytes Absolute Auto 0.7 X10*3/uL (0.1-1.2); Monocytes Percent Auto 10.6 % (2-11); Neutrophils Absolute Auto 3.5 x10*3/uL (2.0-8.3); Neutrophils Percent Auto 55.2 % (45-73); Platelet Count 254 X10*3/uL (160-400); Red Blood Count 5.15 X10*6/uL (4.60-5.80); Red Cell Distribution Width 12.5 % (11.0-16.0); White Blood Count 6.4 X10*3/uL (4.8-10.8)
[2024-07-06 12:19] LABS: Alanine Aminotransferase 23 U/L (0-40); Albumin Level 4.4 g/dL (3.5-5.0); Alkaline Phosphatase 75 U/L (39-117); Anion Gap 12 (12-20); Aspartate Amino Transferase 24 U/L (5-37); Bilirubin Total 1.1 mg/dL (0.0-1.0); Blood Urea Nitrogen 14 mg/dL (9-16); Calcium 10.1 mg/dL (8.4-10.2); Carbon Dioxide 28 mmol/L (22-29); Chloride 104 mmol/L (96-108); Cholesterol 179 mg/dL (<200); Estimated Glomerular Filt Rate > 60; Glucose Fasting 113 mg/dL (60-99); HDL Cholesterol 36 mg/dL (>40); LDL Cholesterol Calculated 129 mg/dL (<100); Potassium 4.6 mmol/L (3.3-5.1); Sodium 139 mmol/L (135-145); Total Protein 7.8 g/dL (6.5-8.0); Triglycerides 74 mg/dL (<150)
== END 2024-07-06 11:06 | disposition home or self-care (01) ==
LOC: HO.LAB 11:05
PROVIDERS: PCP Internal Medicine; Visit Provider Internal Medicine
DX: N20.0 Calculus of kidney (principal); Z00.00 Encounter for general adult medical examination without abnormal findings
CPT/HCPCS: 36415; 80053; 80061; 81003; 85025; 99212

== ENCOUNTER 2024-07-06 11:39 | Outpatient (AMB) | payer OTHER, SELFPAY ==
--- NOTE | 2024-07-06 11:42 | MHC.OFFVIS ---
Intake Visit Reasons: 8w/US(US pending) Intake Note: Patient is present for 8W/US Urology Medication:VITAMIN B6 Antibiotic Allergy:NONE Blood Thinner:NONE Business Computers Teacher Required: Yes Business Computers Teacher Name: Alonso [id number] Information Interpreted: non-clinical & clinical Allergies No Known Allergies Allergy (Verified 07/16/24 17:23) HPI Comments Details: 07/06/24--Malcom is here for follow-up kidney stones. Renal ultrasound 06/09/2024 degreasing solution reclaimer pending. He was last seen in the office 03/09/24-- I reviewed 24 hour urine results: 11/24/23--Total volume 2.88 L, Calcium 206 mg; Oxalate 41 mg, Sodium 270, Citrate 790 mg. Instructed on importance of Low oxalate diet, low sodium diet. Vit B6 100 mg daily. Will cont to monitor kidneys and PSA. Review of chart 06/20/23?Malcom is a 53-year-old male who presents today via tele-visit for a follow-up review of US result. The patient has been followed by Dr. Jin for nephrolithiasis. The patient denies any urinary symptoms since last visit. He has not been prescribed Vit B6. He denies any family history of prostate cancer. 05/23/23: US RETROPERITONEAL LIMITED (RENAL ONLY) result reviewed: There are 3mm and 6 mm non-obstructing left renal calculi. No right renal calculus is seen. No hydronephrosis is noted bilaterally. 05/10/22--Malcom is a pleasant male. He is a patient of Dr. Chapa. He seen for the following urologic conditions - nephrolithiasis Recurrence kidney stone former Drinks adequate amounts of water Imaging - 10/31 renal ultrasound left lower pole 5 mm stone - 04/30 renal ultrasound left lower pole 5 mm stone Therapeutic plan - surveillance imaging - encourage 64 oz of water - vitamin B6 PFSH Medical History Physical exam Renal calculi Screen for colon cancer Family history of hypertension History of pancreatitis Hemorrhoids Nephrolithiasis Chronic GERD KINDRA (generalized anxiety disorder) Mild recurrent major depression Surgical History H/O colonoscopy Family History Father No problems noted. Mother Hypertension Social History Housing: Apartment Alcohol intake: former Patient Tobacco Use Status: Former Tobacco user Tobacco use type: Cigarette e-Cigarette/Vaping Use: Never Used Second Hand Smoke Exposure: No service: No Current occupational status: unemployed Cognitive needs: No Hearing needs: No Vision needs: No Review of Systems Const All systems reviewed & are unremarkable except as noted in HPI and below Reports no additional complaints Eyes Reports no additional complaints ENT Reports no additional complaints Card Reports no additional complaints Resp Reports no additional complaints GI Reports no additional complaints Reports as per HPI Musc Reports no additional complaints Skin/Breast Reports system reviewed and no additional complaints, except as documented Neuro Reports no additional complaints Psych Reports no additional complaints Endo Reports no additional complaints Angel/Lymph Reports no additional complaints Aller/Immun Reports no additional complaints Results AMB Urinalysis, Automated UA Leukoctes 0 Scott/uL Last Edit by PIERO Salinas on 07/06/24 12:10 UA Nitrite Negative Last Edit by PIERO Salinas on 07/06/24 12:10 UA Urobilinogen 0.2 mg/dL Last Edit by PIERO Salinas on 07/06/24 12:10 UA Protein 15 mg/dL Last Edit by PIERO Salinas on 07/06/24 12:10 UA pH 6.0 Last Edit by PIERO Salinas on 07/06/24 12:10 UA Blood 0 Jakob/uL Last Edit by PIERO Salinas on 07/06/24 12:10 UA Specific [place] 1.030 Last Edit by PIERO Salinas on 07/06/24 12:10 UA Ketone Positive Last Edit by PIERO Salinas on 07/06/24 12:10 UA Bilirubin 0 mg/dL Last Edit by PIERO Salinas on 07/06/24 12:10 UA Glucose 0 mg/dL Last Edit by PIERO Salinas on 07/06/24 12:10 Results Reviewed Results Reviewed: Laboratory Last Values Urine pH (Auto) 6.0 07/06/24 12:09 Specific [place] (Auto) 1.030 07/06/24 12:09 Urine Protein (Auto) 15 mg/dL 07/06/24 12:09 Glucose (UA)(Auto) 0 mg/dL 07/06/24 12:09 Urine Ketones (Auto) Positive 07/06/24 12:09 Urine Blood (Auto) 0 Jakob/uL 07/06/24 12:09 Urine Nitrite (Auto) Negative 07/06/24 12:09 Urine Bilirubin (Auto) 0 mg/dL 07/06/24 12:09 Urine Urobilinogen (Auto) 0.2 mg/dL 07/06/24 12:09 Leukocyte Esterase (Auto) 0 Scott/uL 07/06/24 12:09 05/23/23: US RETROPERITONEAL LIMITED (RENAL ONLY): FINDINGS: RIGHT KIDNEY: 10.3 x 6.4 x 5.7 cm (SAG x AP x TRV). The kidney is normal in size, contour, and echogenicity. Renal cortical thickness is normal. No calculi or focal parenchymal lesions. No hydronephrosis. There are numerous echogenic foci which do not meet formal ultrasound criteria for calculi. LEFT KIDNEY: 10.5 x 6.3 x 5.9 cm (SAG x AP x TRV). The kidney is normal in size, contour, and echogenicity. Renal cortical thickness is normal. No focal parenchymal lesions or hydronephrosis. At the lower pole, 6 mm and 3 mm nonobstructing calculi are seen, with twinkle artifact. IMPRESSION: There are nonobstructing left renal calculi. No right renal calculus is seen. No hydronephrosis is noted bilaterally. Assessment & Plan Assessment & Plan (1) Kidney stone on left side: Code(s): N20.0 - Calculus of kidney Category: Medical Plan Will cont to monitor kidneys and PSA. Orders: Orders AMB Urinalysis Automated 07/06/24 Z13.9 - Encounter for screening, unspecified US renal BI 10 Months N20.0 - Calculus of kidney Medications: Refilled pyridoxine (vitamin B6) 100 mg PO DAILY 90 tabs 3RF Patient Instructions: The patient had an opportunity to ask questions regarding treatment plan. The patient expressed understanding and agreement with the above treatment plan. The patient is aware they should contact our office by phone for worsening of their current condition or the appearance of new symptoms. Compliance is encouraged with any medications and followup testing that is ordered. It is a privilege to be allowed the opportunity to participate in the urologic care of your patient. If you have any questions or concerns regarding treatment for the above conditions please do not hesitate to contact me. The office telephone contact is [phone]. This note is constructed in part using voice recognition software. While every effort has been made to ensure accuracy degreasing solution reclaimer errors may have been included. Yours sincerely, Karen Carpio MD Coding Level of Care Code Est Pt Level 4 (62018) Diagnoses Kidney stone on left side N20.0
== END 2024-07-06 12:42 | disposition home or self-care (01) ==
LOC: HO.HUSH 11:39
PROVIDERS: PCP Internal Medicine; Visit Provider Urology
DX: N20.0 Calculus of kidney (principal)
CPT/HCPCS: 99214

== ENCOUNTER 2024-07-16 16:59 | Outpatient (AMB) | payer OTHER, SELFPAY ==
[2024-07-16 17:08] VITALS: BP 130/82; BMI 29.7
--- NOTE | 2024-07-16 17:08 | A.OFFPC_ITS ---
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 Colonoscopy done 2021 and was normal. No acute complaints. Labs were discussed. Blood glucose elevated and was advised a low-carbohydrate diet. Blood glucose will be repeated in 6 months. [facility] Medical History Physical exam Renal calculi Screen for colon cancer Family history of hypertension History of pancreatitis Hemorrhoids Nephrolithiasis Chronic GERD KINDRA (generalized anxiety disorder) Mild recurrent major depression Surgical History H/O colonoscopy Family History Father No problems noted. Mother Hypertension Social History Housing: Apartment Alcohol intake: former Patient Tobacco Use Status: Former Tobacco user Tobacco use type: Cigarette e-Cigarette/Vaping Use: Never Used Second Hand Smoke Exposure: No service: No Current occupational status: unemployed Cognitive needs: No Hearing needs: No Vision needs: No Questionnaire Thrive Questionnaire Date Thrive assessed: 01/09/24 KINDRA-7 AMB Questionnaire KINDRA-7 Date KINDRA - 7 assessed: 01/09/24 Source: Developed by Drs. Vel Gill, Allison Moran, Jonatan Omalley and colleagues, with an educational laure from [employer]. Review of Systems Const All systems reviewed & are unremarkable except as noted in HPI and below Card Denies chest pain at rest, Denies chest pain with activity, Denies edema, Denies irregular heart rhythm, Denies claudication, Denies dyspnea, Denies dyspnea on exertion, Denies orthopnea, Denies paroxysmal nocturnal dyspnea and Denies slow heart rate Resp Denies cough, Denies dyspnea and Denies dyspnea on exertion GI Denies abdominal pain, Denies change in bowel habits, Denies excessive flatus, Denies nausea and Denies vomiting Denies urinary hesitancy, Denies urinary incontinence and Denies urinary urgency Neuro Denies lack of coordination Physical exam (Primary Care) Vital Signs: Last Vital Signs BP 130/82 07/16/24 17:08 BMI result Body Mass Index 29.7 BMI Assessment/Plan discussion: High BMI High, discussed plan: lifestyle, weight reduction, dietary and physical activity Tobacco/Smoking Status: Tobacco use Status Tobacco use date assessed 01/09/24 07/16/24 17:12 Patient Tobacco Use Status Former Tobacco user 07/16/24 17:12 Tobacco use type Cigarette 07/16/24 17:12 e-Cigarette/Vaping Use Never Used 07/16/24 17:12 Thrive Assessment: Date of Thrive Assessment Date Thrive assessed 01/09/24 07/16/24 17:12 [facility] Head: Yes normal to inspection, Yes normocephalic and Yes atraumatic Ears: external ears normal Eyes General: appearance normal, both eyes and all related structures Eyelids: Yes eyelids normal Conjunctivae: conjunctivae normal Neck Neck: Yes normal visual inspection and Yes supple Resp Effort & Inspection: normal respiratory effort Auscultation: clear to auscultation bilaterally Cardio Jugular venous distension: no JVD Rate: regular rate Rhythm: regular rhythm Heart sounds: S1 normal heart sound present and S2 normal heart sound present GI Inspection: Yes normal to inspection Palpation (GI): Soft to palpation and nontender Auscultation: normal bowel sounds Skin General skin exam: no rashes or lesions noted Neuro General: no focal motor deficits Extrem General: Yes full ROM Psych Appearance: grossly normal Office Procedures Flu Questionnaire Does the patient have a severe egg allergy?: No Does the patient have severe life threatening allergies?: No Does the patient have a fever or illness today?: No Has the patient ever had Guillain-[place] Syndrome?: No Has the patient ever had any past reaction to a flu shot?: No Immunizations Fluarix Triv [id number] (PF) 45 mcg (15 mcg x 3)/0.5 mL IM syringe Performing Provider: Lauren Chapa MD Performing Location[place] [facility] Administered by: TIMI Edouard on 07/16/24 17:35 Dose Route Admin Location Dispensed Lot Number Expiration Date NDC Lead [employer] Developer 0.5 mL IM Left Deltoid 0.5 mL [id number] 03/08/25 [id number] [employer] VIS Given Date VIS Provided VIS Publication Date 07/16/24 Single Vaccine 21 Eligibility Eligibility Date Funding Source Not [facility] Eligible 07/16/24 Private Coding Level of Care Code Est Pt Prev Care 40-64y(04613) Diagnoses Physical exam Z00.00 Time Spent (min) 30 Assessment & Plan Assessment & Plan (1) Physical exam: Code(s): Z00.00 - Encounter for general adult medical examination without abnormal findings Category: Medical Plan: Repeat in a year. Orders: Orders Influenza [id number] Immunization 07/16/24 Z23 - Encounter for immunization Comprehensive [place]. Panel Fast 6 Months Z00.00 - Encounter for general adult medical examination without abnormal findings
== END 2024-07-16 18:28 | disposition home or self-care (01) ==
LOC: HO.HMCH 16:59
PROVIDERS: PCP Internal Medicine; Visit Provider Internal Medicine
DX: Z00.00 Encounter for general adult medical examination without abnormal findings (principal)

== ENCOUNTER → 2024-07-16 16:59 | Outpatient (BNVA) | payer OTHER, SELFPAY | PROVIDERS: PCP Internal Medicine; Visit Provider Internal Medicine | DX: Z00.00 Encounter for general adult medical examination without abnormal findings (principal); Z23 Encounter for immunization | CPT/HCPCS: 90471; 90656; 99396 ==

== ENCOUNTER 2025-02-16 16:40 | Outpatient (AMB) | payer OTHER, SELFPAY ==
--- NOTE | 2025-02-16 16:44 | MHC.PC.OV ---
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 Accompanied by: Self / Same As Patient Allergies No Known Allergies Allergy (Verified 02/16/25 17:24) Medication List - Last Reconciled 02/16/25 by Lauren Chapa MD omeprazole 20 mg PO DAILY 90 days pyridoxine (vitamin B6) 100 mg PO DAILY Tobacco use date assessed: 02/16/25 Dental Screening Dental Screen Date: 02/16/25 Did you have a dental visit in the last 12 months?: No Did you have a dental problem in the last 6 months where you did not have access to dental care?: No Was dental information given to patient?: No HPI HPI Comments History of Present Illness Details The patient is a 54-year-old male presenting with prediabetes. During his last examination, the patient had recorded a fasting blood glucose level of 113 mg/dL. Since then, he has actively instituted dietary changes by reducing sugar consumption and engaging in regular physical exercise, resulting in a weight decrease from 184 pounds to 169 pounds. The patient does not report any polyuria or polydipsia, and also denies symptoms of chest pain or dyspnea. Blood pressure readings have remained stable. The comprehensive approach implemented has been beneficial in altering the status of blood glucose levels. [facility], [facility] Medical History (Updated 02/16/25 @ 20:55 by Lauren Chapa MD) Physical exam Renal calculi Screen for colon cancer Family history of hypertension History of pancreatitis Hemorrhoids Nephrolithiasis Chronic GERD KINDRA (generalized anxiety disorder) Mild recurrent major depression Surgical History H/O colonoscopy Family History Father No problems noted. Mother Hypertension Social History Housing: Apartment Alcohol intake: former Patient Tobacco Use Status: Former Tobacco user Tobacco use type: Cigarette e-Cigarette/Vaping Use: Never Used Second Hand Smoke Exposure: No service: No Current occupational status: unemployed Cognitive needs: No Hearing needs: No Vision needs: No Questionnaire PHQ-9 Over the last 2 weeks, how often have you been bothered by any of the following problems? 1. Little interest or pleasure in doing things: not at all 2. Feeling down, depressed, or hopeless: not at all 3. Trouble falling or staying asleep, or sleeping too much: not at all 4. Feeling tired or having little energy: not at all 5. Poor appetite or overeating: not at all 6. Feeling bad about yourself - or that you are a failure or have let yourself or your family down: not at all 7. Trouble concentrating on things, such as reading the newspaper or watching television: not at all 8. Moving or speaking so slowly that other people could have noticed. Or the opposite - being so fidgety or restless that you have been moving around a lot more than usual: not at all 9. Thoughts that you would be better off or of hurting yourself in some way: not at all Total score: 0 Depression Screening Interpretation: Negative Depression Screening Done: Yes 50009 - PHQ-9 Billing: Yes Source: Developed by Drs. Vel Gill, Allison Moran, Jonatan Omalley and colleagues, with an educational laure from [employer]. Thrive Questionnaire Date Thrive assessed: 02/16/25 I am a: Patient What is your living situation today?: I have a steady place to live Within the past 12 months, did the food you bought not last and you didn't have the money to get more?: Never true Within the past 12 months, did you worry whether your food would run out before you got money to buy more?: Never true Do you have trouble paying for medicines?: No Do you have trouble getting transportation to medical appointments?: No Do you have trouble paying your heating and electricity bill?: No Do you have trouble taking care of your child, family member or friend?: No Do you have trouble with day-to-day activities such as bathing, preparing meals, shopping, managing finances, etc.?: No Are you currently unemployed and looking for a job?: No Are you interested in more education?: No Please select the resources that you would like help with: None Currently or been in a relationship where the following occur: No concerns reported THRIVE Score: 0 AUDIT C Alcohol Use Questionnaire (AUDIT-C) 1. How often do you have a drink containing alcohol?: Never 3. How often do you have six or more drinks on one occasion?: Never Total Score: 0 Score Reviewed/Action Taken: No KINDRA-7 AMB Questionnaire KINDRA-7 Date KINDRA - 7 assessed: 02/16/25 Feeling nervous, anxious, or on edge: 1 = Several days Not being able to stop or control worryin = Several days Worrying too much about different things: 1 = Several days Trouble relaxin = Several days Being so restless that it is hard to sit still: 1 = Several days Becoming easily annoyed or irritable: 1 = Several days Feeling afraid as if something awful might happen: 0 = Not at all Total KINDRA-7 score (0-4 normal; 5-9 mild; 10-14 moderate; 15-21 severe): 6 Source: Developed by Drs. Vel Gill, Allison Moran, Jonatan Omalley and colleagues, with an educational laure from [employer]. KINDRA-7 Assessment Billing KINDRA-7 Assessment Tool: KINDRA-7 Assessment 26889 Review of Systems Const All systems reviewed & are unremarkable except as noted in HPI and below Card Denies chest pain at rest, Denies chest pain with activity, Denies edema, Denies irregular heart rhythm, Denies claudication, Denies dyspnea, Denies dyspnea on exertion, Denies orthopnea, Denies paroxysmal nocturnal dyspnea and Denies slow heart rate Resp Denies cough, Denies dyspnea and Denies dyspnea on exertion GI Denies abdominal pain, Denies change in bowel habits, Denies excessive flatus, Denies nausea and Denies vomiting Denies urinary hesitancy, Denies urinary incontinence and Denies urinary urgency Musc Denies atrophy, Denies deformity and Denies limited range of motion Skin/Breast Denies bleeding lesions, Denies changing lesions and Denies rash Physical exam (Primary Care) Vital Signs: Last Vital Signs Pulse 108 H 02/16/25 16:45 BP 130/84 02/16/25 16:45 Pulse Ox 95 02/16/25 16:45 Oxygen Delivery Method Room Air 02/16/25 16:45 BMI result Body Mass Index 27.3 Tobacco/Smoking Status: Tobacco use Status Tobacco use date assessed 02/16/25 02/16/25 16:48 Patient Tobacco Use Status Former Tobacco user 02/16/25 16:48 Tobacco use type Cigarette 02/16/25 16:48 e-Cigarette/Vaping Use Never Used 02/16/25 16:48 PHQ-9: PHQ-9 Score PHQ-9: Total score 0 02/16/25 17:26 Depression Screening Interpretation: Negative Thrive Assessment: Date of Thrive Assessment Date Thrive assessed 02/16/25 02/16/25 16:48 Currently or been in a relationship where the following occur: No concerns reported Resp Effort & Inspection: normal respiratory effort Auscultation: clear to auscultation bilaterally Cardio Jugular venous distension: no JVD Rate: regular rate Rhythm: regular rhythm Heart sounds: S1 normal heart sound present and S2 normal heart sound present Extrem General: Yes full ROM Coding Level of Care Code Est Pt Level 3 (31220) Complex EM visit Add On G2211 Diagnoses Impaired glucose tolerance R73.02 Chronic GERD K21.9 Nephrolithiasis N20.0 Additional Codes KINDRA-7 Assessment Billing - KINDRA-7 Assessment Tool: KINDRA-7 Assessment 98767 ([id number]) PHQ-9 - 53261 - PHQ-9 Billing: Yes ([id number]) Time Spent (min) 19 Assessment & Plan Assessment & Plan (1) Impaired glucose tolerance: Code(s): R73.02 - Impaired glucose tolerance (oral) Category: Medical (2) Chronic GERD: Code(s): K21.9 - Gastro-esophageal reflux disease without esophagitis Category: Medical (3) Nephrolithiasis: Code(s): N20.0 - Calculus of kidney Category: Medical Plan The management of the patient's prediabetes will involve sustained lifestyle modifications, specifically focusing on maintaining a low-sugar diet and engaging in regular physical activities. The patient will repeat fasting blood glucose tests, avoiding Sundays due to lab availability, to evaluate changes in glucose levels. These interventions aim to stabilize blood glucose and promote ongoing health improvements, leveraging the beneficial outcomes the patient has achieved so far. Patient was informed and verbally consented to the use of an ambient scribe for clinic note documentation during this visit. During our consultation, I discussed the importance of continuing lifestyle modifications, including a low-sugar diet and regular exercise, to manage prediabetes effectively. The risks associated with continued high blood glucose levels were reviewed, as well as the positive impact that weight loss and dietary changes have had on his condition thus far. I explained the procedure for fasting blood glucose retesting and emphasized avoiding Sundays due to laboratory operating hours. Follow-up plans were agreed upon to ensure timely monitoring and management advances based on upcoming test results. Orders: Orders Comprehensive [place]. Panel Fast Today R73.02 - Impaired glucose tolerance (oral) Patient Instructions: - Continue reducing sugar intake in your diet. - Maintain your regular exercise routine. - Repeat fasting blood glucose test any day of the week, except Saturday. - Aim for 8 hours of fasting before the test. - Monitor blood glucose levels as instructed and maintain regular check-ups. - Report any new symptoms such as excessive thirst, frequent urination, or other concerns.
[2025-02-16 16:45] VITALS: BP 130/84; PULSE 108; O2SAT 95; BMI 27.3
== END 2025-02-16 17:30 | disposition home or self-care (01) ==
LOC: HO.HMCH 16:40
PROVIDERS: PCP Internal Medicine; Visit Provider Internal Medicine
DX: R73.02 Impaired glucose tolerance (oral) (principal); K21.9 Gastro-esophageal reflux disease without esophagitis; N20.0 Calculus of kidney

== ENCOUNTER → 2025-02-16 16:40 | Outpatient (BNVA) | payer OTHER, SELFPAY | PROVIDERS: PCP Internal Medicine; Visit Provider Internal Medicine | DX: R73.02 Impaired glucose tolerance (oral) (principal); K21.9 Gastro-esophageal reflux disease without esophagitis; N20.0 Calculus of kidney; Z13.31 Encounter for screening for depression; Z13.30 Encounter for screening examination for mental health and behavioral disorders, unspecified | CPT/HCPCS: 96127; 99212 ==

== ENCOUNTER 2025-02-19 11:56 | Outpatient (REF) | payer OTHER, SELFPAY ==
[2025-02-19 14:07] LABS: Alanine Aminotransferase 17 U/L (0-40); Albumin Level 4.4 g/dL (3.5-5.0); Alkaline Phosphatase 67 U/L (39-117); Anion Gap 10 (12-20); Aspartate Amino Transferase 25 U/L (5-37); Bilirubin Total 0.9 mg/dL (0.0-1.0); Blood Urea Nitrogen 14 mg/dL (9-16); Calcium 9.6 mg/dL (8.4-10.2); Carbon Dioxide 29 mmol/L (22-29); Chloride 107 mmol/L (96-108); Estimated Glomerular Filt Rate > 60; Glucose Fasting 95 mg/dL (60-99); Sodium 142 mmol/L (135-145); Total Protein 7.5 g/dL (6.5-8.0)
== END 2025-02-19 11:57 | disposition home or self-care (01) ==
LOC: HO.LAB 11:56
PROVIDERS: PCP Internal Medicine; Visit Provider Internal Medicine
DX: Z00.00 Encounter for general adult medical examination without abnormal findings (principal)
CPT/HCPCS: 36415; 80053

== ENCOUNTER 2025-05-06 07:39 | Outpatient (REF) | payer OTHER, SELFPAY ==
--- NOTE | ~2025-05-06 | US_ITS ---
CLINICAL HISTORY: N20.0 - Calculus of kidney US renal with Color Doppler Comparison: US/SR - US KIDNEY BILATERAL - 06/09/24 07:59 EDT US/MD/SR - US KIDNEY BILATERAL - 05/23/23 09:56 EDT Findings: Right kidney normal size and echotexture, 10.4 cm length. No hydronephrosis calculus or mass. Normal color flow. Left kidney normal size and echotexture, 11.2 cm length. No hydronephrosis or mass. Normal color flow. 4 x 4 x 2 mm nonobstructing caliceal stone lower pole. This previously measured 5 x 4 x 4 mm. Impression: 1. Kidneys normal size and position with normal cortical width and echotexture. Nonobstructing nephrolithiasis on the left. This document has been electronically signed by: Obi Sultana MD on 05/06/2025 10:22:54
== END 2025-05-06 07:40 | disposition home or self-care (01) ==
LOC: HO.US 07:39
PROVIDERS: PCP Internal Medicine; Visit Provider Urology
DX: N20.0 Calculus of kidney (principal)
CPT/HCPCS: 76775

== ENCOUNTER → 2025-05-06 07:41 | Outpatient (BNV) | payer OTHER, SELFPAY | PROVIDERS: PCP Internal Medicine; Visit Provider Radiology Diagnostic Radiology | DX: N20.0 Calculus of kidney (principal) | CPT/HCPCS: 76775 ==

== ENCOUNTER 2025-07-29 14:14 | Outpatient (AMB) | payer OTHER, SELFPAY ==
--- NOTE | 2025-07-29 14:18 | MHC.PC.OV ---
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 Accompanied by: Self / Same As Patient Allergies No Known Allergies Allergy (Verified 07/29/25 14:27) Medication List - Last Reconciled 07/29/25 by Lauren Chapa MD omeprazole 20 mg PO DAILY 90 days pyridoxine (vitamin B6) 100 mg PO DAILY Tobacco use date assessed: 07/29/25 Dental Screening Dental Screen Date: 07/29/25 Did you have a dental visit in the last 12 months?: No Did you have a dental problem in the last 6 months where you did not have access to dental care?: Yes Was dental information given to patient?: No HPI HPI Comments History of Present Illness Details The patient is a 55 year old individual presenting for an annual physical exam. The patient takes omeprazole for acidity and vitamin B6 for the prevention of kidney stones. The last colonoscopy was performed in 2021, with the next one due in 2031. Laboratory tests from last year were normal. Regarding immunizations, the patient recently received a flu vaccine, initially believing it was the shingles vaccine. The status of the last tetanus vaccine is under review. Family history is significant for the patient's mother having hypertension. The patient's father, who is still alive, has a history of heavy alcohol consumption in his youth and may have had fatty liver, which reportedly resolved with dietary changes. - Colonoscopy: Last performed in 2021 and next is due in 2031. - Immunizations: Status of the last tetanus vaccine is being reviewed. - The patient recently received an influenza vaccine and has not yet received a shingles vaccine. - Laboratory Screening: Labs were completed last year and noted to be normal. [facility] Medical History Physical exam Renal calculi Screen for colon cancer Family history of hypertension History of pancreatitis Hemorrhoids Nephrolithiasis Chronic GERD KINDRA (generalized anxiety disorder) Mild recurrent major depression Surgical History H/O colonoscopy Family History Father No problems noted. Mother Hypertension Social History Housing: Apartment Alcohol intake: former Patient Tobacco Use Status: Former Tobacco user Tobacco use type: Cigarette e-Cigarette/Vaping Use: Never Used Second Hand Smoke Exposure: No Use of substances other than those prescribed or required for medical reasons: No service: No Current occupational status: unemployed Cognitive needs: No Hearing needs: No Vision needs: No Questionnaire Thrive Questionnaire Date Thrive assessed: 02/10/25 I am a: Patient What is your living situation today?: I have a steady place to live Within the past 12 months, did the food you bought not last and you didn't have the money to get more?: Never true Within the past 12 months, did you worry whether your food would run out before you got money to buy more?: Never true Do you have trouble paying for medicines?: No Do you have trouble getting transportation to medical appointments?: No Do you have trouble paying your heating and electricity bill?: No Do you have trouble taking care of your child, family member or friend?: No Do you have trouble with day-to-day activities such as bathing, preparing meals, shopping, managing finances, etc.?: No Are you currently unemployed and looking for a job?: No Are you interested in more education?: No Please select the resources that you would like help with: None Currently or been in a relationship where the following occur: No concerns reported THRIVE Score: 0 KINDRA-7 AMB Questionnaire KINDRA-7 Date KINDRA - 7 assessed: 02/16/25 Source: Developed by Drs. Vel Gill, Allison Moran, Jonatan Omalley and colleagues, with an educational laure from [employer]. Review of Systems Const All systems reviewed & are unremarkable except as noted in HPI and below Card Denies chest pain at rest, Denies chest pain with activity, Denies edema, Denies irregular heart rhythm, Denies claudication, Denies dyspnea, Denies dyspnea on exertion, Denies orthopnea, Denies paroxysmal nocturnal dyspnea and Denies slow heart rate Resp Denies cough, Denies dyspnea and Denies dyspnea on exertion GI Denies abdominal pain, Denies change in bowel habits, Denies excessive flatus, Denies nausea and Denies vomiting Physical exam (Primary Care) Vital Signs: Last Vital Signs Temp 97.1 F 07/29/25 14:19 Pulse 100 07/29/25 14:19 Resp 20 07/29/25 14:19 BP 138/80 07/29/25 14:19 Pulse Ox 97 07/29/25 14:19 Oxygen Delivery Method Room Air 07/29/25 14:19 BMI result Body Mass Index 27.8 Tobacco/Smoking Status: Tobacco use Status Tobacco use date assessed 07/29/25 07/29/25 14:24 Patient Tobacco Use Status Former Tobacco user 07/29/25 14:24 Tobacco use type Cigarette 07/29/25 14:24 e-Cigarette/Vaping Use Never Used 07/29/25 14:24 Thrive Assessment: Date of Thrive Assessment Date Thrive assessed 02/10/25 07/29/25 14:18 Currently or been in a relationship where the following occur: No concerns reported [facility] Head: Yes normal to inspection, Yes normocephalic and Yes atraumatic Ears: external ears normal Eyes General: appearance normal, both eyes and all related structures Eyelids: Yes eyelids normal Conjunctivae: conjunctivae normal Neck Neck: Yes normal visual inspection and Yes supple Resp Effort & Inspection: normal respiratory effort Auscultation: clear to auscultation bilaterally Cardio Jugular venous distension: no JVD Rate: regular rate Rhythm: regular rhythm Heart sounds: S1 normal heart sound present and S2 normal heart sound present GI Inspection: Yes normal to inspection Palpation (GI): Soft to palpation and nontender Auscultation: normal bowel sounds Skin General skin exam: no rashes or lesions noted Neuro General: no focal motor deficits Extrem General: Yes full ROM Psych Appearance: grossly normal Coding Level of Care Code Est Pt Prev Care 40-64y(39206) Diagnoses Physical exam Z00.00 Time Spent (min) 30 Assessment & Plan Assessment & Plan (1) Physical exam: Code(s): Z00.00 - Encounter for general adult medical examination without abnormal findings Category: Medical Plan Plan 1. Annual Physical Examination The patient is seen for a routine annual physical examination. Health maintenance screenings were reviewed, confirming the patient's last colonoscopy was in 2021 and the next is due in 2031. Immunization status will be reviewed, specifically for tetanus, and the shingles vaccine series will be initiated.
[2025-07-29 14:19] VITALS: BP 138/80; PULSE 100; RESP 20; TEMP 36.2; O2SAT 97; BMI 27.8
== END 2025-07-29 14:39 | disposition home or self-care (01) ==
LOC: HO.HMCH 14:14
PROVIDERS: PCP Internal Medicine; Visit Provider Internal Medicine
DX: Z00.00 Encounter for general adult medical examination without abnormal findings (principal)

== ENCOUNTER → 2025-07-29 14:14 | Outpatient (BNVA) | payer OTHER, SELFPAY | PROVIDERS: PCP Internal Medicine; Visit Provider Internal Medicine | DX: Z00.00 Encounter for general adult medical examination without abnormal findings (principal) | CPT/HCPCS: 99396 ==

== ENCOUNTER 2025-08-17 08:26 | Outpatient (REF) | payer OTHER, SELFPAY ==
[2025-08-17 10:19] LABS: Prostate Specific Antigen 0.46 ng/mL (<0.05-4.0)
== END 2025-08-17 08:27 ==
LOC: HO.LAB 08:26
PROVIDERS: PCP Internal Medicine; Visit Provider Urology
DX: Z12.5 Encounter for screening for malignant neoplasm of prostate (principal); N20.0 Calculus of kidney
CPT/HCPCS: 36415; 84153

== ENCOUNTER 2025-08-26 08:17 | Outpatient (AMB) | payer OTHER, SELFPAY ==
--- NOTE | 2025-08-26 08:23 | MHC.OFFVIS ---
Intake Visit Reasons: 1yr follow up/US/PSA (set(UA) Intake Note: one year follow up /US/PSA 05/06 renal us Allergies No Known Allergies Allergy (Verified 07/29/25 14:27) Medication List - Last Reconciled 08/26/25 by Karen Carpio MD omeprazole 20 mg PO DAILY 90 days pyridoxine (vitamin B6) 100 mg PO DAILY HPI Comments Details: 08/26/2025--Malcom is here for follow-up nephrolithiasis and PSA screening. Renal ultrasound done April 2025-- 4 mm left kidney stone is stable. The patient denies any episodes of renal colic or blood in the urine. PSA-08/17/2025--0.46. We will continue to monitor renal ultrasound and PSA next year. 07/06/24--Malcom is here for follow-up kidney stones. Renal ultrasound 06/09/2024 agile test lead pending. He was last seen in the office 03/09/24-- I reviewed 24 hour urine results: 11/24/23--Total volume 2.88 L, Calcium 206 mg; Oxalate 41 mg, Sodium 270, Citrate 790 mg. Instructed on importance of Low oxalate diet, low sodium diet. Vit B6 100 mg daily. Will cont to monitor kidneys and PSA. 06/20/23?Malcom is a 53-year-old male who presents today via tele-visit for a follow-up review of US result. The patient has been followed by Dr. Jin for nephrolithiasis. The patient denies any urinary symptoms since last visit. He has not been prescribed Vit B6. He denies any family history of prostate cancer. 05/23/23: US RETROPERITONEAL LIMITED (RENAL ONLY) result reviewed: There are 3mm and 6 mm non-obstructing left renal calculi. No right renal calculus is seen. No hydronephrosis is noted bilaterally. 05/10/22--Malcom is a pleasant male. He is a patient of Dr. Chapa. He seen for the following urologic conditions - nephrolithiasis Recurrence kidney stone former Drinks adequate amounts of water Imaging - 10/31 renal ultrasound left lower pole 5 mm stone - 04/30 renal ultrasound left lower pole 5 mm stone Therapeutic plan - surveillance imaging - encourage 64 oz of water - vitamin B6 [facility] Medical History Physical exam Renal calculi Screen for colon cancer Family history of hypertension History of pancreatitis Hemorrhoids Nephrolithiasis Chronic GERD KINDRA (generalized anxiety disorder) Mild recurrent major depression Surgical History H/O colonoscopy Family History Father No problems noted. Mother Hypertension Social History Housing: Apartment Alcohol intake: former Patient Tobacco Use Status: Former Tobacco user Tobacco use type: Cigarette e-Cigarette/Vaping Use: Never Used Second Hand Smoke Exposure: No service: No Current occupational status: unemployed Cognitive needs: No Hearing needs: No Vision needs: No Review of Systems Const All systems reviewed & are unremarkable except as noted in HPI and below Reports no additional complaints Eyes Reports no additional complaints ENT Reports no additional complaints Card Reports no additional complaints Resp Reports no additional complaints GI Reports no additional complaints Reports as per HPI Musc Reports no additional complaints Skin/Breast Reports system reviewed and no additional complaints, except as documented Neuro Reports no additional complaints Psych Reports no additional complaints Endo Reports no additional complaints Angel/Lymph Reports no additional complaints Aller/Immun Reports no additional complaints Results AMB Urinalysis, Automated UA Leukoctes 0 Scott/uL Last Edit by TIMI Nino on 08/26/25 08:41 UA Nitrite Negative Last Edit by TIMI Nino on 08/26/25 08:41 UA Urobilinogen 0.2 mg/dL Last Edit by TIMI Nino on 08/26/25 08:41 UA Protein 0 mg/dL Last Edit by TIMI Nino on 08/26/25 08:41 UA pH 6.0 Last Edit by TIMI Nino on 08/26/25 08:41 UA Blood 0 Jakob/uL Last Edit by TIMI Nino on 08/26/25 08:41 UA Specific [place] 1.015 Last Edit by TIMI Nino on 08/26/25 08:41 UA Ketone Negative Last Edit by TIMI Nino on 08/26/25 08:41 UA Bilirubin 0 mg/dL Last Edit by TIMI Nino on 08/26/25 08:41 UA Glucose 0 mg/dL Last Edit by TIMI Nino on 08/26/25 08:41 Results Reviewed Results Reviewed: Laboratory Last Values Urine pH (Auto) 6.0 08/26/25 08:39 Specific [place] (Auto) 1.015 08/26/25 08:39 Urine Protein (Auto) 0 mg/dL 08/26/25 08:39 Glucose (UA)(Auto) 0 mg/dL 08/26/25 08:39 Urine Ketones (Auto) Negative 08/26/25 08:39 Urine Blood (Auto) 0 Jakob/uL 08/26/25 08:39 Urine Nitrite (Auto) Negative 08/26/25 08:39 Urine Bilirubin (Auto) 0 mg/dL 08/26/25 08:39 Urine Urobilinogen (Auto) 0.2 mg/dL 08/26/25 08:39 Leukocyte Esterase (Auto) 0 Scott/uL 08/26/25 08:39 Date of Service: 05/06/25 CLINICAL HISTORY: N20.0 - Calculus of kidney US renal with Color Doppler Comparison: US/SR - US KIDNEY BILATERAL - 06/09/24 07:59 EDT US/IN/SR - US KIDNEY BILATERAL - 05/23/23 09:56 EDT Findings: Right kidney normal size and echotexture, 10.4 cm length. No hydronephrosis calculus or mass. Normal color flow. Left kidney normal size and echotexture, 11.2 cm length. No hydronephrosis or mass. Normal color flow. 4 x 4 x 2 mm nonobstructing caliceal stone lower pole. This previously measured 5 x 4 x 4 mm. Impression: 1. Kidneys normal size and position with normal cortical width and echotexture. Nonobstructing nephrolithiasis on the left. 05/23/23: US RETROPERITONEAL LIMITED (RENAL ONLY): FINDINGS: RIGHT KIDNEY: 10.3 x 6.4 x 5.7 cm (SAG x AP x TRV). The kidney is normal in size, contour, and echogenicity. Renal cortical thickness is normal. No calculi or focal parenchymal lesions. No hydronephrosis. There are numerous echogenic foci which do not meet formal ultrasound criteria for calculi. LEFT KIDNEY: 10.5 x 6.3 x 5.9 cm (SAG x AP x TRV). The kidney is normal in size, contour, and echogenicity. Renal cortical thickness is normal. No focal parenchymal lesions or hydronephrosis. At the lower pole, 6 mm and 3 mm nonobstructing calculi are seen, with twinkle artifact. IMPRESSION: There are nonobstructing left renal calculi. No right renal calculus is seen. No hydronephrosis is noted bilaterally. Assessment & Plan Assessment & Plan (1) Kidney stone on left side: Code(s): N20.0 - Calculus of kidney Category: Medical (2) Screening PSA (prostate specific antigen): Code(s): Z12.5 - Encounter for screening for malignant neoplasm of prostate Category: Medical Plan We will continue to monitor renal ultrasound and PSA next year. Continue vitamin B6 100 mg daily Orders: Orders AMB Urinalysis Automated Today Z13.9 - Encounter for screening, unspecified Medications: Refilled pyridoxine (vitamin B6) 100 mg PO DAILY 90 tabs 3RF Patient Instructions: The patient had an opportunity to ask questions regarding treatment plan. The patient expressed understanding and agreement with the above treatment plan. The patient is aware they should contact our office by phone for worsening of their current condition or the appearance of new symptoms. Compliance is encouraged with any medications and followup testing that is ordered. It is a privilege to be allowed the opportunity to participate in the urologic care of your patient. If you have any questions or concerns regarding treatment for the above conditions please do not hesitate to contact me. The office telephone contact is [phone]. This note is constructed in part using voice recognition software. While every effort has been made to ensure accuracy agile test lead errors may have been included. Yours sincerely, Karen Carpio MD Coding Level of Care Code Est Pt Level 4 (10977) Diagnoses Kidney stone on left side N20.0 Screening PSA (prostate specific antigen) Z12.5
== END 2025-08-26 09:04 | disposition home or self-care (01) ==
LOC: HO.HUSH 08:17
PROVIDERS: PCP Internal Medicine; Visit Provider Urology
DX: N20.0 Calculus of kidney (principal); Z12.5 Encounter for screening for malignant neoplasm of prostate; Z13.9 Encounter for screening, unspecified
CPT/HCPCS: 99214

== ENCOUNTER → 2025-08-26 08:17 | Outpatient (BNVA) | payer OTHER, SELFPAY | PROVIDERS: PCP Internal Medicine; Visit Provider Urology | DX: N20.0 Calculus of kidney (principal); Z12.5 Encounter for screening for malignant neoplasm of prostate | CPT/HCPCS: 81003; 99212 ==